=== PATIENT | female | born 1965 ===

== ENCOUNTER 2024-09-25 07:14 | Outpatient (CLI) | payer OTHER, SELFPAY ==
--- NOTE | ~2024-09-25 | MR_ITS ---
MRI of the left shoulder Technique: Axial proton-density fat-sat images, coronal proton density fat-sat and T2 fat-sat images, and sagittal T1-weighted and T2 fat-sat images were acquired. Clinical History: Pain Findings: There is mild AC joint degenerative change. Coracoclavicular, coracoacromial, coracohumeral ligaments appear intact. Supraspinatus and intestines demonstrate moderate tendinosis without definite partial or full-thickne ss tear. Subscapularis tendon is intact with mild tendinosis. Tendon of long head of the biceps is in tact. No definite labral tear seen. Inferior glenohumeral ligament is intact. No degenerative change or effusion of the glenohumeral join t. There is mild fluid distention of the subacromial/subdeltoid bursa. There is fluid in the AC joint itself. No muscle atrophy or edema. Impression: Subacromial/subdeltoid bursitis. Moderate rotator cuff tendinosis without definite tear. Reviewed, dictated and finalized at [facility]. NS TIER Impression: Subacromial/subdeltoid bursitis. Moderate rotator cuff tendinosis without definite tear.
--- NOTE | ~2024-09-25 | MR_ITS ---
MRI of the lumbar spine Clinical History: Pain Technique: Axial T2-weighted images, and sagittal T1-weighted, T2-weighted, and T2 fat-sat images wer e acquired. Findings: No acute fracture or subluxation seen. No suspicious bone marrow signal abnormality seen. At L1-L2, there is moderate degenerative disc narrowing, with minimal disc bulge and mild to moderate facet arthropathy. No central canal stenosis or neural foraminal narrowing. At L2-L3, there is advanced degenerative disc narrowing. There is disc bulge and moderate facet arthr opathy, with mild central canal stenosis. Neural foramina are preserved. At L3-L4, there is mild degenerative disc narrowing. There is minimal disc bulge with severe facet ar thropathy. No kem central canal stenosis or definite neural foraminal narrowing. At L4-L5, there is mild to moderate degenerative disc narrowing. There is mild diffuse disc bulge wit h severe facet arthropathy. No central canal stenosis. Probable mild right neural foraminal narrowing . Left neural foramen preserved. At L5-S1, there is minimal disc bulge with severe facet arthropathy. No central canal stenosis. There is mild to moderate right neural foraminal narrowing, and mild left neural foraminal narrowing. Paravertebral soft tissues are unremarkable. Impression: Moderate degenerative spondylosis overall, as above. Reviewed, dictated and finalized at [facility]. D SYSTEMS ADMINISTRATOR Impression: Moderate degenerative spondylosis overall, as above.
--- NOTE | ~2024-09-25 | MR_ITS ---
MRI of the cervical spine Clinical History: Left arm pain Technique: Axial T2-weighted and gradient images, and sagittal T1-weighted, T2-weighted, and STIR halina ges were acquired. Findings: There is no fracture or subluxation of the cervical spine. There is straightening of the no rmal cervical lordosis. No suspicious or abnormal bone marrow signal evident. At C2-C3, there is no disc bulge or herniation. No spinal canal stenosis, cord compression, or neural foraminal narrowing. At C3-C4, there is no disc bulge or herniation. No spinal canal stenosis, cord compression, or neural foraminal narrowing. At C4-C5, there is degenerative disc narrowing with minimal disc osteophyte complex. No kem canal s tenosis or cord compression. There is mild bilateral facet arthropathy, possible minimal left neural foraminal narrowing. Right neural foramen preserved. At C5-C6, there is minimal left paracentral disc osteophyte complex and minimal facet arthropathy. No kem canal stenosis, cord compression, or neural foraminal narrowing. At C6-C7, there is no disc bulge or herniation. No spinal canal stenosis, cord compression, or neural foraminal narrowing. No abnormal signal seen in the spinal cord. Paravertebral soft tissues are unremarkable. Impression: Mild degenerative spondylosis, as above. Reviewed, dictated and finalized at [facility]. 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
== END 2024-09-25 07:15 | disposition home or self-care (01) ==
LOC: MICIMG 07:15
PROVIDERS: PCP Physician Assistant Medical; Visit Provider Physician Assistant Medical
DX: M47.892 Other spondylosis, cervical region (principal); M47.896 Other spondylosis, lumbar region; M75.52 Bursitis of left shoulder
CPT/HCPCS: 72141; 72148; 73221

== ENCOUNTER 2025-03-25 08:11 | Outpatient (CLI) | payer OTHER, SELFPAY ==
--- NOTE | ~2025-03-25 | MR_ITS ---
EXAMINATION: MR knee LT wo con DATE: 03/25/2025 09:01 INDICATION: Left knee pain TECHNIQUE: Magnetic resonance imaging (MRI) of the left knee was performed without intravenous contra st. Sequences included coronal PD-weighted FSE, coronal PD-weighted FS FSE, sagittal T2-weighted FSE , sagittal PD-weighted FS FSE and axial PD weighted fat saturated FSE. COMPARISON: None. FINDINGS: Medial compartment: Medial meniscus is normal. Partial-thickness chondral fissuring without degenerative subchondral fine ges at the central aspect of the medial tibial plateau. Lateral compartment: Lateral meniscus is normal. Partial-thickness chondral fissuring without degenerative subchondral alessandra nges along the posterior medial aspect of the lateral tibial plateau. Patellofemoral compartment: Partial-thickness chondral fissuring along the inferior aspect of the lateral patellar facet. Ligaments and tendons: Anterior and posterior cruciate ligaments are normal. The medial collateral ligament and fibular osorio ateral ligament complex are normal. Upsets and patellar tendons are normal. The visualized medial and lateral hamstring tendons as well as the iliotibial band are normal. Fluid: Physiologic amount of fluid in the joint space. No loose osteochondral bodies identified. Small multi lobulated Bo's cyst. Osseous/other: Small low signal intensity bone island at the lateral femoral condyle. Bone marrow signal is otherwis e normal. No fracture or pathologic marrow replacing process. There is mild increased fluid signal al sowmya the distal vastus lateralis muscles bilaterally suspicious for low-grade strain. IMPRESSION: 1. Low-grade muscle strain of the distal vastus lateralis. 2. Mild tricompartmental osteoarthritis with regions of partial-thickness chondral fissuring at the m edial lateral tibial plateaus and lateral patellar facet. 3. Small Bo's cyst. Reviewed, dictated and finalized at [facility]. IMPRESSION: 1. Low-grade muscle strain of the distal vastus lateralis. 2. Mild tricompartmental osteoarthritis with regions of partial-thickness chond ral fissuring at the medial lateral tibial plateaus and lateral patellar facet. 3. Small Bo's cyst.
== END 2025-03-25 08:12 | disposition home or self-care (01) ==
PROVIDERS: PCP Physician Assistant Medical; Visit Provider Physician Assistant Medical
DX: M17.12 Unilateral primary osteoarthritis, left knee (principal); M71.22 Synovial cyst of popliteal space [Baker], left knee
CPT/HCPCS: 73721